=== PATIENT | male | born 1965 ===

== ENCOUNTER → 2022-06-27 | Day surgery (SDC) | payer OTHER ==
[~2022-06-27] VITALS: Ht 177.8 cm; Wt 79.4 kg
[~2022-06-27] MED LIST: AMBIEN10 MG PO; DIAZEPAM5 MG PO; NEURONTIN300 MG PO; POLY119PG PO; TRAM1TAB98 PO
== END | disposition home or self-care (01) ==
LOC: ADM 06-25 07:45 → CIR.AMB 07:00
PROVIDERS: ATTEND Surgery
DX: K40.90 Unilateral inguinal hernia, without obstruction or gangrene, not specified as recurrent (principal); Z20.822 Contact with and (suspected) exposure to COVID-19